=== PATIENT | female | born 1960 | race Caucasian/White ===

== ENCOUNTER 2017-10-12 10:46 | Emergency (ER) | payer OTHER ==
--- NOTE | 2017-10-12 11:29 | ED Physician Documentation ---
Chest Pain - HISTORIAN Historian: patient - HPI Stated Complaint: heart palpatations Chief Complaint: General Adult Additional Information: pt has recent exab of palpitaions-this episode assoc w/ back and lt arm pain hector assoc anxiety she first remembers palpitations in 1996 then absent for years then year or so returned and recently almost daily-never lasts more than 6 -10 seconds. had sig occurrence around 0300 this am edpisodes lasting no more than 10 sec Timing: denies: still present Last known Well Date: 10/12/17 (this actually jayant in 1976 but this program does not qallow for the truth) Last Known Well Time: 03:00 Context: onset during:, sleep Severity: mild, moderate Quality: other (mild to moderate) Chest Pain Radiation: other (assoc back or arm pain freq occurs) Chest Pain Signs/Symptoms: denies: nausea, vomiting, diaphoresis, dyspnea - ROS CONST: no problems. denies: recent illness MS/LYMPH: none GI/: none EYES/ENT: denies: problems with vision SKIN/ENDO: none NEURO/PSYCH: none (has hx [facility]) - PAST HX PA risk factors: diabetes Type 1 (pre), other (depression anxiety migraine cephalgia) Neuro deficit: other (numbness hands - pt thinks carpal tunnel) Lung disease: other (pt smoked for yrs) Surgeries/Procedures: other (BTL T AND A) Allergies/Adverse Reactions: Allergies Allergy/AdvReac Type Severity Reaction Status Date / Time No Known Drug Allergies Allergy Verified 10/12/17 11:04 Home Medications: Ambulatory Orders Medication Instructions Recorded Aspirin [Liam] 81 mg PO DAILY 10/12/17 Fluticasone Propionate [Flonase 1 spray NS 10/12/17 Nasal [place]] Sertraline HCl [Zoloft] 100 mg PO DAILY 10/12/17 - SOCIAL HX Smoking History: greater than 1 pack/day Alcohol Use: none Drug Use: none - FAMILY HX Family HX: CAD under 55, CAD over 55 - VITAL SIGNS Vital Signs: Vital Signs Temp Pulse Resp BP Pulse Ox 97.4 F L 79 24 111/73 96 10/12/17 10:46 10/12/17 10:46 10/12/17 10:46 10/12/17 10:46 10/12/17 10:46 - REVIEWED ASSESSMENTS Nursing Assessment Reviewed: Yes Vitals Reviewed: Yes ED Results Lab/Radiology - Orders Orders: ED Orders Category Date Time Status Continuous EKG monitoring Q30M Care 10/12/17 11:23 Active Continuous Pulse Oximetry Q30M Care 10/12/17 11:23 Active CBC/PLATELET/DIFF Routine Lab 10/12/17 11:25 Received CMP Routine Lab 10/12/17 11:25 Received TROPONIN I (cTnI) Stat Lab 10/12/17 11:25 Received EKG WITH COMPARISON Stat Ther 10/12/17 11:23 Ordered Chest Pain Physical Exam - EXAM General Appearance: mild distress, anxious EENT: eye inspection normal Neck: nml inspection, no carotid bruit Respiratory: no resp. distress, nml breath sounds CVS: reg. rate & rhythm, no murmur Abdomen: soft, non-tender Skin: warm/dry, normal color. No: cyanosis, diaphoresis, jaundice Extremities: non-tender, normal range of motion, no edema Neuro: oriented X3, motor nml, sensation nml, mood/affect nml Discharge Clincal Impression: palpitations uncertain etiology, anxiety Referrals: Kassidy Luciano FNP [NURSE PRACTITIONER] - 2 Days Comments: will schedule consult w/DR LOO tomorrow here at [facility] [address] PT AGREES Condition: Good Disposition: 01 HOME, SELF-CARE Decision to Admit: NO Decision Time: 12:28
[2017-10-12 11:33] LABS: BASOPHILS % 0.5 (0.0-1.5); EOSINOPHILS % 0.5 % (0.0-6.8); MEAN CORPUSCULAR HEMOGLOBIN 30.5 pg (28.0-34.0); MEAN CORPUSCULAR VOLUME 92.8 fl (80.0-100.0); MONOCYTES % 3.6 % (0.0-11.0); NEUTROPHILS # 5.8 # k/uL (1.4-7.7)
[2017-10-12 11:40] LABS: eGFR (African) > 60; eGFR (Non-African) > 60
[2017-10-12 12:42] VITALS: BP 108/54
== END 2017-10-12 12:38 | disposition home or self-care (01) ==
LOC: ED 10:46
DX: R00.2 Palpitations (principal); F41.9 Anxiety disorder, unspecified; F17.210 Nicotine dependence, cigarettes, uncomplicated; R73.03 Prediabetes
CPT/HCPCS: 80053; 84484; 85025; 99283; S1016

== ENCOUNTER 2017-10-13 10:54 | Outpatient (CLI) | payer OTHER ==
[2017-10-12 12:42] VITALS: BP 108/54
== END 2017-10-13 10:55 ==
LOC: CARD 10:54
PROVIDERS: ATTEND Internal Medicine Cardiovascular Disease
DX: R00.2 Palpitations (principal); E78.5 Hyperlipidemia, unspecified; Z72.0 Tobacco use
CPT/HCPCS: 99213

== ENCOUNTER 2017-12-29 11:06 | Outpatient (CLI) | payer OTHER | END 2017-12-29 11:08 | LOC: CARD 11:06 | PROVIDERS: ATTEND Internal Medicine Cardiovascular Disease | DX: R00.2 Palpitations (principal); E78.5 Hyperlipidemia, unspecified; Z72.0 Tobacco use | CPT/HCPCS: 99213 ==